=== PATIENT | male | born 1940 | race Caucasian/White ===

== ENCOUNTER 2022-10-04 04:26 | Day surgery (SDC) | payer OTHER, MEDICARE ==
[2022-10-03 12:51] VITALS: BMI 27.5
[2022-10-04 10:57] VITALS: TEMP 97.5
[2022-10-04 11:14] VITALS: BP 126/76
[2022-10-04 13:08] VITALS: PULSE 57; RESP 12
== END 2022-10-04 11:45 | disposition home or self-care (01) ==
LOC: JASU-ENDO 04:26
PROVIDERS: ATTEND Internal Medicine
PROC: 0D5N8ZZ Destruction of Sigmoid Colon, Via Natural or Artificial Opening Endoscopic (ICD-10-PCS; 2022-10-04)
PROC: 0DBM8ZX Excision of Descending Colon, Via Natural or Artificial Opening Endoscopic, Diagnostic (ICD-10-PCS; 2022-10-04)
PROC: 0D5H8ZZ Destruction of Cecum, Via Natural or Artificial Opening Endoscopic (ICD-10-PCS; principal; 2022-10-04 08:00)
DX: Z12.11 Encounter for screening for malignant neoplasm of colon (principal); Z80.0 Family history of malignant neoplasm of digestive organs; D12.0 Benign neoplasm of cecum; D12.4 Benign neoplasm of descending colon; D12.5 Benign neoplasm of sigmoid colon; K64.8 Other hemorrhoids; K57.30 Diverticulosis of large intestine without perforation or abscess without bleeding
CPT/HCPCS: 88305-TC